=== PATIENT | female | born 1940 | race Caucasian/White ===

== ENCOUNTER → 2017-07-14 | Outpatient (REF) | LOC: ZLAB.WCH 15:39 | DX: Z01.89 Encounter for other specified special examinations (principal) ==

== ENCOUNTER → 2018-02-01 | Outpatient (REF) | LOC: ZLAB.WCH 17:49 | DX: Z01.89 Encounter for other specified special examinations (principal) ==

== ENCOUNTER 2020-02-28 15:21 | Observation (INO) | payer MEDICARE ==
[~2020-02-28] VITALS: Ht 167.6 cm; Wt 91.9 kg
[2020-02-28 16:18] LABS: COLLECTION METHOD CLEAN CATCH
[2020-02-28 16:21] LABS: BASO # 0.1 (0.0-0.2); BASO % 0.8 % (0.0-2.0); EOS # 0.3 (0.0-0.7); GRAN # 6.1 (1.4-6.5); GRAN % 66.2 % (42.2-75.2); HEMOGLOBIN 12.8 g/dl (12.5-16.0); LYMPH # 1.8 (1.2-3.4); LYMPH % 19.3 % (20.0-51.0); MEAN CELL VOLUME 93 fl (80.0-100.0); MEAN CORPUSCULAR HEMOGLOBIN 31 pg (27.0-31.0); MEAN CORPUSCULAR HGB CONC 34 g/dl (33.0-37.0); MEAN PLATELET VOLUME 10.7 fl (7.4-10.4); MONO % 10.4 % (1.7-9.3); PLATELET COUNT 266 K/mm3 (130-400); RED BLOOD COUNT 4.09 M/mm3 (4.10-5.30); REDCELL DISTRIBUTION WIDTH-CV 12.7 % (11.5-14.5)
[2020-02-28 16:27] LABS: PH 5 (5-8); SQUAMOUS EPITHELIAL 0-2 /hpf; URINE APPEARANCE Hazy; URINE BACTERIA Rare /hpf; URINE BILIRUBIN Negative (NEGATIVE); URINE BLOOD Negative (NEGATIVE); URINE COLOR Yellow; URINE GLUCOSE Negative (NEGATIVE); URINE KETONE Negative (NEGATIVE); URINE LEUKOCYTE ESTERASE 2+ (NEGATIVE); URINE NITRATE Negative (NEGATIVE); URINE PROTEIN(semi-quant) 2+ (NEGATIVE); URINE RBC 0-2 /hpf; URINE UROBILINOGEN Negative (NEGATIVE)
[2020-02-28 16:35] LABS: ALANINE AMINOTRANSFERASE 20 U/L (4-34); ALBUMIN 4.2 gm/dL (3.5-5.0); ALKALINE PHOSPHATASE 67 U/L (50-136); ANION GAP 9 mmol/L (7-16); AST,SGOT 26 U/L (15-37); BILIRUBIN,TOTAL 0.4 mg/dL (0.0-1.0); BLOOD UREA NITROGEN 31 mg/dL (7-17); C-REACTIVE PROTEIN < 0.5 mg/dL (0.0-0.9); CALCIUM 9.4 mg/dL (8.4-10.2); CARBON DIOXIDE 23 mmol/L (22-30); CHLORIDE 105 mmol/L (98-107); CREATININE, serum 1.43 (0.52-1.25); GLUCOSE 157 mg/dL (74-106); SODIUM 137 mmol/L (137-145); TOTAL PROTEIN 7.6 gm/dL (6.4-8.2)
[2020-02-28] MEDS ORDERED: PEPCID 20MG TAB20 MG PO ×2 (16:59→20:48)
[2020-02-28] MEDS ORDERED: NORVASC 10MG10 MG PO (16:59)
[2020-02-28] MEDS ORDERED: PRINZIDE 25 MG-1 TAB PO ×2 (16:59→20:50)
[2020-02-28] MEDS ORDERED: LOPRESSOR 225 MG/TAB PO (16:59)
[2020-02-28 17:02] LABS: TROPONIN-I < 0.012 ng/mL (0.000-0.035)
[2020-02-28 20:09] LABS: PROTHROMBIN TIME 11.1 SECONDS (9.7-12.8)
[2020-02-28 20:12] LABS: PARTIAL THROMBOPLASTIN TIME 35.3 SECONDS (26.0-37.0)
[2020-02-28 20:14] LABS: MAGNESIUM 1.4 mg/dL (1.6-2.3)
[2020-02-28 20:24] VITALS: BP 187/142; PULSE 80; TEMP 97.4
[2020-02-28 20:29] VITALS: BP 187/142; PULSE 79; TEMP 97.4
[2020-02-28] MEDS ORDERED: ASPIRIN 81M81 MG/TA2 PO (20:51)
[2020-02-28] MEDS ORDERED: ADVIL200 MG PO (21:10)
[2020-02-28] MEDS ORDERED: MASON NATURAL500 MG PO (21:11)
[2020-02-28] MEDS ORDERED: CRANBERRY500 M3 PO (21:11)
[2020-02-28] MEDS ORDERED: IMODIUM 2MG CAPS2 MG PO (21:33)
--- NOTE | 2020-02-28 22:00 | NUR ---
Patient arrived to medical unit from ER at approximately 2019. Denies having pain and discomfort. Patient is alert and oriented x 4, and able to make needs known. Neuro checks are WNL for patient. Peripheral IV to right AC. NS started at 75 ml/hr per orders. Also started Magnesium Sulfate IV per orders. Patient's BP elevated, recheck still elevated at 191/76. Given PRN Appresoline per orders, along with scheduled Lopressor. Denies SOB and dyspnea. LS CTA. Respirations even and unlabored. HRR. Telemetry in place: normal sinus. Capillary refill less than 3 seconds. Non-tenting skin turgor. BSAx4. Abdomen soft and non-tender. 1+ edema BLE. Voices no questions, needs, or concerns at this time. Resting in bed with call light within reach.
[2020-02-28 23:50] VITALS: BP 166/55; PULSE 75; TEMP 98.6
[2020-02-29 04:39] VITALS: BP 174/66; PULSE 73; TEMP 97.8
--- NOTE | 2020-02-29 05:02 | NUR ---
Patient has been resting in bed watching TV. Neuro checks are WNL for patient. Speach clear and understandable. Voices no questions, needs, or concerns at this time. Resting in bed with call light within reach. Given PRN Appresoline twice for HTN this shift. Voices no questions, needs, or concerns at this time. Resting in bed with call light within reach.
[2020-02-29 07:24] LABS: BASO # 0.1 (0.0-0.2); BASO % 0.6 % (0.0-2.0); EOS # 0.2 (0.0-0.7); EOS % 2.9 % (0-4.0); GRAN # 5.9 (1.4-6.5); GRAN % 70.7 % (42.2-75.2); HEMATOCRIT 38.8 % (37.0-47.0); HEMOGLOBIN 13.3 g/dl (12.5-16.0); LYMPH # 1.3 (1.2-3.4); LYMPH % 15.5 % (20.0-51.0); MEAN CELL VOLUME 92 fl (80.0-100.0); MEAN CORPUSCULAR HEMOGLOBIN 31 pg (27.0-31.0); MEAN CORPUSCULAR HGB CONC 34 g/dl (33.0-37.0); MEAN PLATELET VOLUME 10.8 fl (7.4-10.4); MONO # 0.8 (0.1-0.6); MONO % 9.7 % (1.7-9.3); PLATELET COUNT 276 K/mm3 (130-400); RED BLOOD COUNT 4.24 M/mm3 (4.10-5.30); REDCELL DISTRIBUTION WIDTH-CV 12.8 % (11.5-14.5)
[2020-02-29 07:38] LABS: CALCIUM 9.3 mg/dL (8.4-10.2); CHOLESTEROL RISK RATIO 5.8; CREATININE, serum 1.32 (0.52-1.25)
[2020-02-29 08:26] VITALS: BP 147/113; PULSE 76; TEMP 97.5
--- NOTE | 2020-02-29 09:01 | NUR ---
Assessment complete. Pt sitting up in recliner. Alert and oriented. States she feels fine she is just hungry. She is aware of her POC at this time. IV site is CD&I with fluids infusing at this time. No symptoms of stroke or TIA are evident at this time. No drift or weakness in extremities. She denies pain and discomfort at this time. No other needs were expressed. Call light is in reach.
[2020-02-29] MEDS ORDERED: OMNICEF 300MG300 MG PO (10:09)
[2020-02-29] MEDS ORDERED: PLAVIX 75MG TAB75 MG PO (10:48)
[2020-02-29 12:05] VITALS: BP 156/57; PULSE 66; TEMP 98.1
--- NOTE | 2020-02-29 14:23 | NUR ---
Plan: To return home with brother Sergey [phone], and Rossi [phone] as care support and EMR. Patient reported that he did not have a DPOa and declined one at th is time. He resides in [facility]. Assess: SW met with patient at the door. Patient reports that she uses a glucmeter,and that her PCP is Mrs. Williamson(nurse practitioner) at the [facility]. She states that she does not have any follow up appointments. Patient reports that she gets her medications from [facility] with no concerns. Patient denied having any care concerns, and denies the need for home health services. Plan: No additional concerns identified. Patient was educated about community resources.
--- NOTE | 2020-02-29 16:09 | NUR ---
Pt left the floor at this time. per Dr. Tejada she was okay to discharge without the MRI that was ordered due to her stable condition. No further questions or concerns regarding discharge instructions.
== END 2020-02-29 16:11 | disposition home or self-care (01) ==
LOC: COL.ER 15:21 → MEDICAL 18:12
PROVIDERS: Emergency Medicine; Nurse Practitioner Family
DX: R47.02 Dysphasia (principal); N39.0 Urinary tract infection, site not specified; B96.89 Other specified bacterial agents as the cause of diseases classified elsewhere; I16.0 Hypertensive urgency; E11.9 Type 2 diabetes mellitus without complications; E83.42 Hypomagnesemia; Z88.1 Allergy status to other antibiotic agents; Z79.82 Long term (current) use of aspirin; Z87.891 Personal history of nicotine dependence
CPT/HCPCS: G0378; J0360; J0696; J3475; J7030